=== PATIENT | female | born 1985 | race Caucasian/White ===

== ENCOUNTER → 2017-02-21 | Outpatient (CLI) | payer MEDICAID | LOC: FIMAGING 08:25 | PROVIDERS: ATTEND Obstetrics & Gynecology | DX: Z34.91 Encounter for supervision of normal pregnancy, unspecified, first trimester (principal); I87.1 Compression of vein; F10.21 Alcohol dependence, in remission; Z3A.12 12 weeks gestation of pregnancy; Z86.718 Personal history of other venous thrombosis and embolism ==